=== PATIENT | female | born 1995 | race Caucasian/White ===

== ENCOUNTER → 2017-12-10 | Outpatient (REF) | payer OTHER ==
[2017-12-12 09:13] LABS: HBsAg Prenatal NEGATIVE (NEGATIVE)
[2017-12-12 09:21] LABS: HEPATITIS C VIRUS ABY INDEX < 0.0 INDEX (<0.8)
== END ==
LOC: M LAB REF 17:32
DX: Z34.83 Encounter for supervision of other normal pregnancy, third trimester (principal); Z3A.37 37 weeks gestation of pregnancy
CPT/HCPCS: 87340

== ENCOUNTER 2018-01-05 11:03 | Inpatient (IN) | payer OTHER ==
[2018-01-05] MEDS: PENICILLIN G POTASSIUM IV 2.5 MU in APPROPRIATE DILUENT 1 EA IV
[2018-01-05] MEDS ORDERED: miSOPROStol 50 MCG 1/2 TAB (S0191) PO (11:30)
[2018-01-05 11:59] LABS: HEMOGLOBIN 10.9 g/dl (12.0-15.5); MEAN CORPUSCULAR HEMOGLOBIN 29.9 pg (27.0-33.0); MEAN CORPUSCULAR HGB CONC 34.1 g/dl (32.0-36.5); MEAN CORPUSCULAR VOLUME 87.7 fl (80.0-96.0); PLATELET COUNT, AUTOMATED 143 10^3/uL (150-450); RED BLOOD COUNT 3.65 10^6/uL (4.00-5.40); RED CELL DISTRIBUTION WIDTH 14.6 % (11.5-14.5); WHITE BLOOD COUNT 8.1 10^3/uL (4.0-10.0)
[2018-01-05] MEDS: miSOPROStol 50 MCG 1/2 TAB (S0191) PO ×2 (12:00→16:06)
[2018-01-05] MEDS ORDERED: OXYTOCIN 30 UNITS IN 0.9% NaCl 500ML IV BAG (J2590) As Ordered (20:02)
[2018-01-05] MEDS: LR 1,000 ML IV (20:15)
[2018-01-05] MEDS: PENICILLIN G POTASSIUM IV 5 MU in D5W MINI-BAG PLUS 100 ML IV (20:15)
[2018-01-05] MEDS: OXYTOCIN DRIP 30 UNITS in APPROPRIATE DILUENT 1 EA IV (21:44)
[2018-01-05] MEDS: PROMETHAZINE INJ 25 MG/ML VIAL (J2550) IV (23:35)
[2018-01-05] MEDS: BUTORPHANOL 2 MG/ML INJ (J0595) IV (23:36)
[2018-01-06] MEDS ORDERED: FENTANYL 2MCG/ML ROPIVACAINE 0.2% IN 0.9% NACL 200ML IVBAG As Ordered (02:13)
[2018-01-06] MEDS ORDERED: EPIDURAL COMMENT XX (03:45)
[2018-01-06] MEDS ORDERED: ePHEDrine SULFATE 25 MG/5 ML(5MG/ML) SYRINGE IV (03:45)
[2018-01-06] MEDS ORDERED: LACTATED RINGER'S 1000 ML IV (03:45)
[2018-01-06] MEDS ORDERED: EPIDURAL/PCA KEYS XX (03:45)
[2018-01-06] MEDS ORDERED: NALOXONE INJ 0.4 MG/1 ML VIAL (J2310) IV (03:45)
[2018-01-06] MEDS ORDERED: FENTANYL/ROPIVACAINE/NACL BAG 200 ML EPIDURAL (03:45)
[2018-01-06] MEDS ORDERED: ONDANSETRON 4MG/2ML VIAL (J2405) IV (03:45)
[2018-01-06] MEDS ORDERED: diphenhydrAMINE INJ 50MG/ML VIAL (J1200) IV (03:45)
[2018-01-06] MEDS ORDERED: REFRIGERATOR IV KEYS XX (03:45)
[2018-01-06] MEDS: OXYTOCIN DRIP 30 UNITS in APPROPRIATE DILUENT 1 EA IV (05:08)
[2018-01-06] MEDS: LIDOCAINE 1% MDV 20ML VIAL INFIL (05:15)
[2018-01-06] MEDS ORDERED: DOCUSATE SODIUM 100 MG CAP PO (05:45)
[2018-01-06] MEDS ORDERED: METHYLERGONOVINE MALEATE 0.2 MG TAB PO (05:45)
[2018-01-06] MEDS ORDERED: DIBUCAINE 1% OINTMENT 30GM TOP (05:45)
[2018-01-06] MEDS ORDERED: ANUSOL HC CREAM 30GM TOP (05:45)
[2018-01-06] MEDS: IBUPROFEN 800 MG TAB PO (06:03)
[2018-01-06] MEDS: ACETAMINOPHEN 500 MG TAB PO (06:04)
[2018-01-06] MEDS: PRENATAL VITAMINS CHEWABLE TABLET PO (09:00)
[2018-01-06] MEDS: MEASLES,MUMPS,RUBELLA VACCINE INJ (MMR-II) (90707) SC (13:08)
[2018-01-06] MEDS: RHOGAM 300 MCG (1500 IU) INJ (J2790) IM (13:08)
[2018-01-07] MEDS: PRENATAL VITAMINS CHEWABLE TABLET PO (08:48)
[2018-01-08] MEDS: PRENATAL VITAMINS CHEWABLE TABLET PO (08:12)
[2018-01-08] MEDS: IBUPROFEN 800 MG TAB PO (08:12)
== END 2018-01-08 12:43 | disposition home or self-care (01) | DRG 775 ==
LOC: M LDI 11:03 → M OBS 01-06 07:32
PROVIDERS: Advanced Practice Midwife
PROC: 3E0P7GC Introduction of Other Therapeutic Substance into Female Reproductive, Via Natural or Artificial Opening (ICD-10-PCS; 2018-01-05)
PROC: 10E0XZZ Delivery of Products of Conception, External Approach (ICD-10-PCS; principal; 2018-01-06)
PROC: 0HQ9XZZ Repair Perineum Skin, External Approach (ICD-10-PCS; 2018-01-06)
DX: O48.0 Post-term pregnancy (principal); O99.824 Streptococcus B carrier state complicating childbirth; Z3A.40 40 weeks gestation of pregnancy; O70.0 First degree perineal laceration during delivery; Z37.0 Single live birth